=== PATIENT | female | born 1950 | race Two or more races ===

== ENCOUNTER 2023-12-04 11:07 | Outpatient (REF) | payer SELFPAY ==
[2023-12-04 11:42] LABS: MANUAL DIFF FLAG NO
[2023-12-04 11:58] LABS: Basophils Percent Auto 0.5 % (0-2); Hematocrit 39.2 % (37.0-47.0); Hemoglobin 13.2 g/dl (12.0-16.0); Imm Gran Abs Auto 0.01 X10*3/uL (0.00-0.03); Imm Gran Pct Auto 0.3 % (0.0-0.4); Lymphocytes Absolute Auto 1.3 X10*3/uL (1.2-4.9); Lymphocytes Percent Auto 31.9 % (20-40); Mean Corpuscular HGB Conc 33.7 g/dl (31.0-35.0); Mean Corpuscular Hemoglobin 32.6 pg (27.0-33.0); Mean Corpuscular Volume 96.8 fL (80.0-98.0); Mean Platelet Volume 11.3 fL (9.4-12.3); Monocytes Absolute Auto 0.5 X10*3/uL (0.1-1.2); Monocytes Percent Auto 13.3 % (2-11); Neutrophils Absolute Auto 2.1 x10*3/uL (2.0-8.3); Platelet Count 202 X10*3/uL (160-400); Red Blood Count 4.05 X10*6/uL (4.20-5.50); Red Cell Distribution Width 12.8 % (11.0-16.0); White Blood Count 3.9 X10*3/uL (4.8-10.8)
[2023-12-04 12:00] LABS: Prothrombin Time 12.6 SEC (11.1-13.3)
[2023-12-04 12:02] LABS: Partial Thromboplastin Time 33.6 SEC (26.0-36.8)
== END 2023-12-04 11:08 | disposition home or self-care (01) ==
LOC: HO.LAB 11:07
PROVIDERS: Visit Provider Family Medicine
DX: D64.9 Anemia, unspecified (principal); D69.1 Qualitative platelet defects; D68.9 Coagulation defect, unspecified
CPT/HCPCS: 36415; 85025; 85610; 85730